=== PATIENT | female | born 1950 | race Caucasian/White ===

== ENCOUNTER 2019-08-08 10:43 | Observation (INO) | payer OTHER ==
[~2019-08-08] VITALS: Ht 154.9 cm; Wt 78.0 kg
--- OUTSIDE RECORDS SUMMARY | 2019-08-08 10:45 | XMS REPORT | Clinical Summary ---
Author Author [facility] Organization [facility] Address Unknown Phone Unavailable Care Team Providers Care Decal Maker Name Role Phone Davis Juan MD PCP Allergies No Known Allergies Medications End Date Status Medication Sig Dispensed Refills Start Date Active amLODIPine (NORVASC) 2.5 Take 2.5 mg 0 10/24 mg tablet by mouth 9 daily. Active diclofenac (VOLTAREN) 1 % Apply 1 Tube 1 gel topically 4 9 (four) times a day. Status Hospital, Clinic, or Ordered Dose Route Frequency Start End Date Other Facility Date Administered Medication Active methylPREDNISolone 80 mg IM once 0 acetate (DEPO-MEDROL) 19 injection 80 mgIndications: Primary osteoarthritis of left knee Active lidocaine (XYLOCAINE) 10 2 mL inj once 1 04/01/19 mg/mL (1 %) injection 2 19 mLIndications: Primary osteoarthritis of left knee Active bupivacaine (MARCAINE) 2 mL inj once 0.25 % (2.5 mg/mL) 19 injection 2 mLIndications: Primary osteoarthritis of left knee Active Problems No known active problems Encounters Care Team Description Date Type Specialty 07/18/2019 Travel Niko Almaraz MD Primary osteoarthritis of left knee (Nikole zara Dx); Knee effusion, left 01/30/2019 Office Visit Orthopedic Surgery Luna Louis Acute pain of left knee (Primary Dx) 01/29/2019 Orders Only Sports Medicine Trino Buchanan MD CMC arthritis (Primary Dx) 11/07/2018 Office Visit Orthopedic Surgery Hamzah Lezama MA Bilateral hand pain (Primary Dx) 11/06/2018 Orders Only Orthopedic Surgery Trino Buchanan MD 10/23/2018 Telephone Orthopedic Surgery Hamzah Lezama MA Bilateral hand pain (Primary Dx) 10/18/2018 Orders Only Orthopedic Surgery after 08/07/2018 Family History Medical History Relation Name Comments Cancer Mother Relation Name Status Comments Father Mother Social History Date Tobacco Use Types Packs/Day Years Used Never Smoker Smokeless Tobacco: Never Used Drinks/Week oz/Week Comments Alcohol Use Never Alcohol Habits Answer Date Recorded How often do you have a drink containing alcohol? Never 11/07/2018 How many drinks containing alcohol do you have on No t asked a typical day when you are drinking? How often do you have six or more drinks on one Not asked occasion? Sex Assigned at Date Recorded Not on file Industry Job Start Date Occupation Not on file Not on file Not on file Travel End Travel History Travel Start No recent travel history available. Date Recorded COVID-19 Exposure Response 07/18/2019 9:53 AM CDT In the last month, have you been in contact with No / Unsure someone who was confirmed or suspected to have Coronavirus / COVID-19? Last Filed Vital Signs Reading Time Taken Comments Vital Sign 158/81 01/30/2019 9:26 AM UX UI DESIGNER Blood Pressure - - Pulse - - Temperature - - Respiratory Rate - - Oxygen Saturation - - Inhaled Oxygen Concentration 75.3 kg (166 lb) 01/30/2019 9:26 AM UX UI DESIGNER Weight 154.9 cm (5' 1") 01/30/2019 9:26 AM UX UI DESIGNER Height 31.37 01/30/2019 9:26 AM UX UI DESIGNER Body Mass Index Plan of Treatment Health Maintenance Due Date Last Done Comments BREAST CANCER SCREENING 1999 COLONOSCOPY SCREENING 1999 SHINGLES VACCINES (#1) 1999 65+ PNEUMOCOCCAL VACCINE 2014 (1 of 2 - PCV13) INFLUENZA VACCINE 10/18/2019 Procedures Comments Procedure Name Priority Date/Time Associated Diag nosis XR KNEE 4+ VW LEFT Routine 01/30/2019 Acute pain of left knee 9:31 AM UX UI DESIGNER XR HANDS 3 VW BILATERAL Routine 11/07/2018 Bilate ral hand pain 10:21 AM CDT [place] ARTHROCENTESIS Routine 11/07/2018 CMC arthriti s ASPIR&/INJ INTERM JT/BURS 10:00 AM CDT W/O US after 08/07/2018 Results * XR Knee 4+ Vw Left (01/30/2019 9:31 AM UX UI DESIGNER) Specimen Narrative Performed At [facility] 4v left knee. I personally ordered and reviewed the imaging. Indication: pain, assessment of joint d isease X-rays demonstrate mild joint space alyson rowing. Medial femoral condyle osteophyte evident on patellofemoral vi ew. No fracture or dislocation. Performing Organization Address [facility] Ph one Number [facility] [address] [place] [address] * XR Hands 3 Vw Bilateral (11/07/2018 10:21 AM CDT) Specimen Narrative Performed At [facility] Xrays: The x-rays were ordered and pers onally reviewed by me. 3 views of the Bilateral hand Reason for exam: Bilateral hand pain Impression: Bilateral hand shows severe thumb CMC and STT arthritis as well as thumb IP arthritis and index th rough small PIP and DIP arthritis Performing Organization Address [facility] Ph one Number [facility] [address] [place] [address] * Medium Joint Arthrocentesis: hand, right (11/07/2018 10:00 AM CDT) Narrative Performed At Trino Buchanan MD 019 4:15 PM Medium Joint Arthrocentesis: hand, righ t Procedure Details Location: hand - right Right side: Right hand medications administered: 6 mg betamethasone acetate & sodium phosphate 6 mg/mL; 0.5 mL lidocaine 10 mg/mL (1 %) Patient tolerance: patient tolerated th e procedure well with no immediate complications after 08/07/2018 Insurance Type Payer Benefit Subscriber ID Effective Phone Address Plan / Dates Group O DEVOTED HEALTH DEVOTED xxxxxx [id number] HEALTH resent Advance Directives For more information, please contact: [phone] Patient Social Media Sr Strategy Manager Explanation Type Date Recorded Advance Directives, Living Will and Medical Power of Neurophysiologist
--- NOTE | 2019-08-08 12:05 | Diagnostic Imaging Report ---
Exam: CT pulmonary angiogram Clinical History: Chest pain Technique: Helical images of the chest were obtained after IV contrast administration using the pulmonary embolism protocol. DOSE REDUCTION: The exams was performed according to the departmental dose-optimization program which includes automated exposure control, adjustment of the mA and/or kV according to patient size and/or use of iterative reconstruction technique. Findings: There is no evidence of acute pulmonary embolism in the main pulmonary artery or its visualized branches. There is no evidence of pulmonary edema, consolidation, pleural effusion, or pneumothorax. Tracheobronchial tree is clear. Mildly prominent pretracheal lymph nodes noted measuring 1 cm in diameter. The cardiac size is within normal limits. The great vessels are normal in caliber and configuration. Postsurgical changes are noted in the epigastric region. A moderate-sized hiatal hernia is also noted. A 1.7 cm lesion in the splenic hilum with rim calcification within internal calcification is noted. This may represent a splenic artery aneurysm. Impression: 1. No CT evidence of acute pulmonary embolism. Signed by: Dr. Cabrera Dial MD on 08/08/2019 12:01 PM
--- NOTE | 2019-08-08 12:18 | Emergency Department Note ---
History of Present Illnes History of Present Illness Chief Complaint: Chest Pain History of Present Illness This is a 69 year old female with chest pain, started today, substerna l, n radiation.No H/O CAD. . Historian: Patient Arrival Mode: Car Onset (how long ago): day(s) (1) Location: left side Quality: tightness Radiation: non-radiation Severity: mild Onset quality: gradual Duration (how long): day(s) (1) Timing of current episode: intermittent Progression: waxing and waning Chronicity: new Context: recent illness, recent surgery, recent immobilization, recent travel, trauma/injury, new medications, hx of DVT/PE, non-compliance w/ medications, other Relieving factors: none Exacerbating factors: none Associated symptoms: denies other symptoms Treatments prior to arrival: none Past Medical/Family History Physician Review I have reviewed the patient's past medical and family history. Any updates have been documented here. Past Medical History Recent Fever: No Clinical Suspicion of Infectio: No New/Unexplained Change in Ment: No Past Medical History: Hypertension Past Surgical History: Appendectomy, Hysterectomy, Bariatric Surgery Other Surgery: Social History Smoking Cessation: Never Smoker Counseling Performed: No Alcohol Use: None Any Illegal Drug Use: No TB Exposure/Symptoms: No Physically hurt or threatened: No Family History Family history of heart diseas: No Other Last Tetanus: UNK Any Pre-Existing Lines (PICC,: No Is patient up to date on immun: Yes Last Flu: 2019 Last Pneumovax: UNK Review of Systems Review of Systems Constitutional: no symptoms EENTM: no symptoms Cardiovascular: no symptoms, as per HPI, chest pain Respiratory: no symptoms Gastrointestinal: no symptoms Genitourinary: no symptoms Musculoskeletal: no symptoms Neurological: no symptoms Psychological: no symptoms Endocrine: no symptoms Hematological/Lymphatic: no symptoms Review of other systems All other systems reviewed and negative. Physical Exam Related Data Allergies: Coded Allergies: No Known Allergies (Unverified , 03/30/13) Triage Vital Signs Vital Signs Date Time Temp Pulse Resp B/P (MAP) Pulse Ox O2 Delivery O2 Flow Rate FiO2 08/08/19 10:55 98.0 68 18 187/86 99 Vital signs reviewed: Yes Physical Exam CONSTITUTIONAL Constitutional: well-developed, well-nourished HENT HENT: normocephalic, atraumatic, oropharynx clear/moist, nose normal HENT L/R: left ext ear normal, right ext ear normal EYES Eyes: PERRL, conjunctivae normal NECK Neck: ROM normal PULMONARY Pulmonary: effort normal, breath sounds normal CARDIOVASCULAR Cardiovascular: regular rhythm, heart sounds normal, capillary refill normal, normal rate GASTROINTESTINAL Abdominal: soft, nontender, bowel sounds normal GENITOURINARY Genitourinary: exam deferred SKIN Skin: warm, dry MUSCULOSKELETAL Musculoskeletal: ROM normal NEUROLOGICAL Neurological: alert, oriented x 3, no gross motor or sensory deficits PSYCHOLOGICAL Psychological: mood/affect normal, judgement normal Results Laboratory Lab results reviewed: Yes Imaging Imaging results reviewed: Yes Procedures 12 Lead ECG Interpretation Auto Bench Mechanic: Interpreted by ED physician Date: August 08, 2019 Time: 10:55 Rhythm: sinus rhythm Rate: normal BPM: 68 QRS axis: normal ST segments normal: Yes Clinical Impression: abnormal ECG Critical Care Time Subsequent provider I assumed direction of critical care for this patient from another provider of my specialty. Assessment & Plan Assessment & Plan Final Impression: (1) Chest pain Assessment & Plan admit Depart Disposition: ADMITTED Last Vital Signs Date Time Temp Pulse Resp B/P (MAP) Pulse Ox O2 Delivery O2 Flow Rate FiO2 08/08/19 10:55 98.0 68 18 187/86 99 Home Meds Unable to Obtain Active Prescriptions or Reported Meds JACKSON GALVAN MD August 08, 2019 12:18
[2019-08-08] MEDS ORDERED: ASPIRIN 325 MG TAB PO ONE (12:30)
[2019-08-08] MEDS ORDERED: ASPIRIN 81 MG CHEW TAB PO ONE (12:30)
[2019-08-08] MEDS ORDERED: ONDANSETRON HCL INJ 2MG/ML 2ML 2 MG/ML VIAL IV PRN (12:30)
[2019-08-08] MEDS ORDERED: CLONIDINE HCL 0.1 MG TAB PO ONE (12:45)
--- NOTE | 2019-08-08 12:56 | NUR ---
[facility] NOTIFED OF TRANSFER. ETA GIVEN IS 30-45 MINUTES
--- OUTSIDE RECORDS SUMMARY | 2019-08-08 13:01 | XMS REPORT | Clinical Summary ---
Author Author [facility] Organization [facility] Address Unknown Phone Unavailable Care Team Providers Care Brim Stiffener Name Role Phone Davis Juan MD PCP [...] Comments Vital Sign 158/81 01/30/2019 9:26 AM GROUNDHAND Blood Pressure - - Pulse - - Temperature - - Respiratory Rate - - Oxygen Saturation - - Inhaled Oxygen Concentration 75.3 kg (166 lb) 01/30/2019 9:26 AM GROUNDHAND Weight 154.9 cm (5' 1") 01/30/2019 9:26 AM GROUNDHAND Height 31.37 01/30/2019 9:26 AM GROUNDHAND Body Mass Index Plan of Treatment Health Maintenance Due Date Last Done Comments BREAST CANCER SCREENING 1999 COLONOSCOPY SCREENING 1999 SHINGLES VACCINES (#1) 1999 65+ PNEUMOCOCCAL VACCINE 2014 (1 of 2 - PCV13) INFLUENZA VACCINE 10/18/2019 Procedures Comments Procedure Name Priority Date/Time Associated Diag nosis XR KNEE 4+ VW LEFT Routine 01/30/2019 Acute pain of left knee 9:31 AM GROUNDHAND XR HANDS 3 VW BILATERAL Routine 11/07/2018 Bilate ral hand pain 10:21 AM CDT ME ARTHROCENTESIS Routine 11/07/2018 [facility] arthriti s ASPIR&/INJ INTERM JT/BURS 10:00 AM CDT W/O US after 08/07/2018 Results * XR Knee 4+ Vw Left (01/30/2019 9:31 AM GROUNDHAND) Specimen Narrative Performed At [facility] 4v left knee. I personally ordered and reviewed the imaging. Indication: pain, assessment of joint d isease X-rays demonstrate mild joint space alyson rowing. Medial femoral condyle osteophyte evident on patellofemoral vi ew. No fracture or dislocation. Performing Organization Address [facility] Ph one Number [facility] [address] [place] [address] * XR Hands 3 Vw Bilateral (11/07/2018 [...] PIP and DIP arthritis Performing Organization Address [facility] Ph one Number [facility] [address] [place] [address] * Medium Joint Arthrocentesis: hand, right (11/07/2018 [...] Advance Directives For more information, please contact: [phone] Patient Winter Intern Explanation Type Date Recorded Advance Directives, Living Will and Medical Power of Sr. Pricing Analyst
--- OUTSIDE RECORDS SUMMARY | 2019-08-08 13:02 | XMS REPORT ---
Author Author [facility] t Organization [facility] Address [address] [place] [address] Phone Unavailable Care Team Providers Care Plywood Matcher Name Role Phone Drake JORGESNEN, Agustin Cannon PCP JACKSON GALVAN Attphys Unavailable Sung JORGENSEN, Nakul Pope Attphys Luna Louis Attphys Unavailable Dewayne JORGENSEN, Yogi Jameson Attphys [phone] Hamzah Lezama MA Attphys Unavailable Payers Payer Name Policy Type Policy Number Effective Date Expiration Date S ource DEVOTED HEALTHDEVOTED HEALTHxxxxxx2019-PresentHMO xxxxxx 2019 00:00:00 Gonzales Tenriism Problems This patient has no known problems. Allergies, Adverse Reactions, Alerts This patient has no known allergies or adverse reactions. Family History Family Member Diagnosis Comments Start Date Stop Date Source Natural mother Cancer [facility] thodist Social History Social Habit Start Date Stop Date Quantity Comments Source History SDOH Alcohol Std Drinks Jay Tenriism History SDOH Alcohol Binge Jay Tenriism Sex Assigned At Ryann ston Tenriism Exposure to SARS-CoV-2 (event) Not sure Jay Tenriism Alcohol intake 2019-01-30 00:00:00 2019-01-30 00:00:00 Lifetime non-drinker (finding) Jay Tenriism History SDOH Alcohol Frequency 2018-11-07 00:00:00 2018-11-07 00:00:0 0 1 Jay Tenriism Smoking Status Start Date Stop Date Source Never smoker Jay Methodis t Medications Ordered Medication Name Filled Medication Name Start Date Stop Da te Current Medication? Ordering Clinician Indication Dosage Frequency Signature (SIG) Comments Components Source methylPREDNISolone acetate (DEPO-MEDROL) injection 80 mg 2019-01-30 09:00:00 Yes Primary osteoarthritis of left knee 80mg [facility] lidocaine (XYLOCAINE) 10 mg/mL (1 %) injection 2 mL 2018-03 09:00:00 Yes Primary osteoarthritis of left knee 2mL [facility] Gil bupivacaine (MARCAINE) 0.25 % (2.5 mg/mL) injection 2 mL 2019-01-30 09:00:00 Yes Primary osteoarthritis of left knee 2mL Christian Gil diclofenac (VOLTAREN) 1 % gel 2018-11-07 00:00:00 Yes Q.25D Apply topically 4 (four) times a day. [facility] amLODIPine (NORVASC) 2.5 mg tablet 2018-10-24 00:00:00 Yes 2.5mg QD Take 2.5 mg by mouth daily. [facility] Vital Signs Vital Name Observation Time Observation Value Comments Source Systolic blood pressure 2019-01-30 09:26:00 158 mm[Hg] Christian Gil Diastolic blood pressure 2019-01-30 09:26:00 81 mm[Hg] Christian Gil Body height 2019-01-30 09:26:00 154.9 cm Christian Gil Body weight 2019-01-30 09:26:00 75.297 kg Christian Gil BMI 2019-01-30 09:26:00 31.37 kg/m2 [facility] Procedures Procedure Date / Time Performed Performing Clinician Sourc e XR KNEE 4+ VW LEFT 2019-01-30 09:31:31 Niko Almaraz XR HANDS 3 VW BILATERAL 2018-11-07 10:21:50 Trino Buchanan [place] ARTHROCENTESIS ASPIR&/INJ INTERM JT/BURS W/O US 2018-10-18 2 10:00:00 Trino Buchanan Plan of Care Planned Activity Planned Date Details Comments Source Future Scheduled Test 2019-10-18 00:00:00 INFLUENZA VACCINE [code = INFLUENZA VACCINE] Christian Gil Future Scheduled Test 2014 00:00:00 65+ PNEUMOCOCCAL V ACCINE (1 of 2 - PCV13) [code = 65+ PNEUMOCOCCAL VACCINE (1 of 2 - PCV13)] [facility] Future Scheduled Test 1999 00:00:00 BREAST CANCER SCRE ENING [code = BREAST CANCER SCREENING] [facility] Gil Future Scheduled Test 1999 00:00:00 COLONOSCOPY SCREEN ING [code = COLONOSCOPY SCREENING] [facility] Gil Future Scheduled Test 1999 00:00:00 SHINGLES VACCINES (#1) [code = SHINGLES VACCINES (#1)] Christian Gil Results Test Description Test Time Test Comments Results Result Comments Source CT CHEST WITH CONTRAST-HOPD 2019-08-08 11:58:00 [facility] [address] [address] Patient Name: PAZ ALCAZAR MR #: [id number] : 1950 Age/Sex: 69/F Req #: [id number] Adm Physician: Ordered by: JACKSON GALVAN MD Report #: [id number] Location: [facility] Room/Bed: Procedure: [id number] HOPD/CT CHEST WITH CONTRAST-HOPD Exam Date: 08/08/19 Exam Time: 1151 REPORT STATUS: Signed Exam: CT pulmonary angiogram Clinical History: Chest pain Technique: Helical images of the chest were obtained after IV contrast administration using the pulmonary embolism protocol. DOSE REDUCTION: The exams was performed according to the departmental dose-optimization program which includes automated exposure control, adjustment of the mA and/or kV according to patient size and/or use of iterative reconstruction technique. Findings: There is no evidence of acute pulmonary embolism in the main pulmonary artery or its visualized branches. There is no evidence of pulmonary edema, consolidation, pleural effusion, or pneumothorax. Tracheobronchial tree is clear. Mildly prominent pretracheal lymph nodes noted measuring 1 cm in diameter. The cardiac size is within normal limits. The great vessels are normal in caliber and configuration. Postsurgical changes are noted in the epigastric region. A moderate-sized hiatal hernia is also noted. A 1.7 cm lesion in the splenic hilum with rim calcification within internal calcification is noted. This may represent a splenic artery aneurysm. Impression: 1. No CT evidence of acute pulmonary embolism. Signed by: Dr. Cabrera Dial MD on 08/08/2019 12:01 PM Dictated By: KATIE DIAL MD 120 Transcribed By: BRANDON on 08/08/19 1201 COPY TO: JACKSON GALVAN MD Medium Joint Arthrocentesis: hand, right 2018-11-07 10:00:00 Trino Buchanan MD 11/07/2018 4:15 PMMedium Joint Arthrocentesis: hand, rightProcedure DetailsLocation: hand - right Right side:Right hand medications administered: 6 mg betamethasone acetate & sodium phosphate 6 mg/mL; 0.5 mL lidocaine 10 mg/mL (1 %)Patient tolerance: patient tolerated the procedure well with no immediate complications Christian Gil
--- NOTE | 2019-08-08 13:04 | NUR ---
COVID 19 TEST PREFORMED AFTER BEING EXPLAINED TO PATIENT WITH VERBAL UNDERSTANDING. PT TOLORATED WELL
[2019-08-08] MEDS ORDERED: DOCUSATE SODIUM 100 MG CAP PO PRN (13:15)
[2019-08-08] MEDS ORDERED: ZOLPIDEM TARTRATE 5 MG TAB PO PRN (13:15)
--- NOTE | 2019-08-08 14:45 | NUR ---
RECEIVED PATIENT FROM [facility]. PATIENT A/O X3, EVEN RESPIRATIONS ON RA. LUNG SOUNDS CLEAR. PATIENT STATES CHEST PRESSURE 7/10. PATIENT AMBULATES INDEPENDENTLY. RIGHT WRIST 18 GAUGE [address] SL. TELEMETRY #1 SR. ORIENTED PATIENT TO ROOM AND CALL LIGHT. CALL LIGHT IN REACH WILL CONTINUE TO MONITOR PATIENT.
[2019-08-08 15:15] VITALS: BP 144/84
[2019-08-08 15:22] VITALS: BP 144/84
[2019-08-08 15:41] VITALS: BP 144/84
[2019-08-08] MEDS ORDERED: FAMOTIDINE 20 MG TAB PO SCH (16:30)
--- NOTE | 2019-08-08 16:40 | NUR ---
CONSULT CALLED FOR DR. OGLESBY.
[2019-08-08] MEDS ORDERED: MORPHINE SULFATE INJ 4 MG/ML INJ 1ML IV PRN (17:00)
[2019-08-08 17:08] LABS: BASOPHILS % 0.6 % (0.0-1.0); EOSINOPHILS # (AUTO) 0.1 (0.0-0.4); HEMATOCRIT 33.7 % (34.2-44.1); HEMOGLOBIN 9.9 g/dL (12.0-16.0); LYMPHOCYTES # (AUTO) 2.1 (1.0-3.2); LYMPHOCYTES % 32.8 % (18.0-39.1); MEAN CORPUSCULAR HEMOGLOBIN 23.2 pg (28-32); MEAN CORPUSCULAR HGB CONC 29.4 g/dL (31-35); MEAN CORPUSCULAR VOLUME 78.9 fL (81-99); MONOCYTES # (AUTO) 0.5 (0.2-0.8); MONOCYTES % 7.7 % (4.4-11.3); NEUTROPHILS # (AUTO) 3.7 (2.1-6.9); NEUTROPHILS % 56.4 % (38.7-80.0); PLATELET COUNT 185 x10e3/uL (140-360); RED BLOOD COUNT 4.27 x10e6/uL (3.6-5.1); RED CELL DISTRIBUTION WIDTH 16.5 % (11.7-14.4)
[2019-08-08] MEDS: PANTOPRAZOLE SOD 40 MG TABEC PO SCH (17:10)
[2019-08-08] MEDS: ACETAMINOPHEN 325 MG TAB PO PRN ×2 (17:18→23:46)
[2019-08-08 17:26] LABS: ANION GAP 10.3 mmol/L (8-16); BLOOD UREA NITROGEN 10 mg/dL (7-26); BUN/CREATININE RATIO 13 (6-25); CARBON DIOXIDE 25 mmol/L (22-29); CHLORIDE 109 mmol/L (98-107); CREATININE, SERUM 0.75 mg/dL (0.57-1.11); EST GLOMERULAR FILTRATION RATE > 60 ML/MIN (60-); GLUCOSE 158 mg/dL (74-118); POTASSIUM 4.3 mmol/L (3.5-5.1); SODIUM 140 mmol/L (136-145)
[2019-08-08 17:29] LABS: CHOL/HDL RATIO 2.9 (3.0-3.6)
[2019-08-08 17:42] LABS: CREATINE KINASE 53 IU/L (29-168)
[2019-08-08 17:43] LABS: ALBUMIN 3.4 g/dL (3.5-5.0); BILIRUBIN,DIRECT 0.2 mg/dL (0.0-0.5)
--- NOTE | 2019-08-08 19:32 | NUR ---
DR. CEDILLO DOING ROUNDS. NEW ORDERS RECEIVED. SEE EMR FOR LIST OF ORDERS.
[2019-08-08 20:00] VITALS: BP 115/69
[2019-08-08] MEDS: ATORVASTATIN 10 MG TAB PO SCH (21:52)
[2019-08-08 22:10] VITALS: BP 115/69
[2019-08-08] MEDS: ZOLPIDEM TARTRATE 10 MG TAB PO PRN (23:57)
[2019-08-09] VITALS (8 sets, daily range): BP systolic 121–147; BP diastolic 67–80
[2019-08-09 00:45] LABS: CREATINE KINASE 44 IU/L (29-168)
--- NOTE | 2019-08-09 03:42 | Consultation ---
DATE OF CONSULTATION: Cardiology Consultation I am on-call for [facility] for Cardiology. DIAGNOSES: 1. Chest pain is highly suggestive of ischemic heart disease, possible angina pectoris. 2. History of hiatal hernia. 3. History of status post gastric bypass surgery 4-5 years ago. 4. Hypertension. Ms. 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 At this time, the patient complained of substernal chest pain. The patient comes to the hospital. One set of troponin is negative. EKG shows nonspecific cystic changes. The patient denies any history of myocardial infarction, history of hypertension present and no history of diabetes mellitus. Does not smoke. She is living with the son, moderately active. PREVIOUS SURGERIES: Include; appendectomy, hysterectomy, bariatric surgery, and hiatal hernia surgery and . The patient clinically has no evidence of congestive heart failure. . Lungs are normal. CAT scan of the lungs normal along with pulmonary emboli protocol. No pulmonary emboli noted. At this time, the patient appears to have two kinds of symptoms probably one may be like gastric reflux symptom which she had for a long time. There is substernal discomfort with EKG changes, highly suggestive it could be ischemic heart disease. I discussed with her that we need to do a stress test and all the possible echocardiogram. We will do it tomorrow, but stress test may not be able to do tomorrow, we can do only on Sunday and depending upon her symptoms tomorrow, we will reevaluate her. In the meantime, continueaspirin 81 mg once a day, metoprolol, and statin, and also she wanted Ambien, it may increase to 10 mg a day. I believe she takes them at home. At this time, the patient is quite stable. Continue to follow the patient. IMPRESSION: 1. Chest pain, possible ischemic heart disease. 2. Hypertension. 3. Bariatric surgery, hiatal surgery. The patient is stable. Troponin is negative. Blood pressure is stable. Thank you again for this consultation. Brigitte Pradhan MD PVB/MODL /[id number] MTDD
--- NOTE | 2019-08-09 05:04 | NUR ---
H&P cc: cp HPI: 69yoF, PCP-, developed left sided chest pressure and mild sob. She has had weeks of dizziness. last stress test 4 years. ago. PMH: hiatal hernia, insomnia, HLD,GERD, HTN PSHx: shoulder x2, gastric bypass, hysterectomy, appendectomy Allergies; see emr FH/Sh; single; no cigs meds; see MAR ROS: no f/c/s/N/V/D/APPIAH/skin rash/vision changes/confusion/depression/focal limb weakness v/s; revd PE tired appearing anicteric ns1s2 mod bs soft nt nd no e/t skin dry n. affect a&ox3; garduno labs/meds revd A/P: Chest pain- r/o ACS INsomnia- ambien HTN- adjust meds; HLD- statin GERD- ppi Obesity- screen for DM; check lipids BMI 32.5- as above Prop: lovenox dispo: f/u studies. Meir Cox MD, PhD.
[2019-08-09] MEDS: HYDRALAZINE HCL 10 MG TAB PO SCH ×3 (05:52→22:07)
--- NOTE | 2019-08-09 07:00 | NUR ---
bedside shift report received pt in stable condition denies pain at this time, updated on poc vocied understandign, call light in reach will continue to monitor
[2019-08-09 08:04] LABS: CREATINE KINASE 39 IU/L (29-168)
[2019-08-09] MEDS: PANTOPRAZOLE SOD 40 MG TABEC PO SCH (08:30)
[2019-08-09] MEDS: ASPIRIN 325 MG TAB EC PO SCH (09:06)
[2019-08-09] MEDS: METOPROLOL TARTRATE 25 MG TAB PO SCH ×2 (09:07→17:37)
[2019-08-09] MEDS: ACETAMINOPHEN 325 MG TAB PO PRN ×2 (09:09→16:11)
[2019-08-09] MEDS ORDERED: ENOXAPARIN SOD INJ 40 MG/0.4 ML SYR SC SCH (17:00)
[2019-08-09] MEDS: ATORVASTATIN 10 MG TAB PO SCH (22:06)
[2019-08-09] MEDS: ZOLPIDEM TARTRATE 10 MG TAB PO PRN (23:35)
[2019-08-10 00:27] VITALS: BP 138/78
[2019-08-10 04:00] VITALS: BP 139/73
[2019-08-10] MEDS: HYDRALAZINE HCL 10 MG TAB PO SCH (06:12)
[2019-08-10 08:05] VITALS: BP 142/81
[2019-08-10] MEDS ORDERED: LIPITOR10 MG PO (08:57)
[2019-08-10] MEDS ORDERED: PROTONIX40 MG/ML PO (08:57)
[2019-08-10] MEDS ORDERED: HYDRALAZINE HCL10 MG PO (08:57)
[2019-08-10] MEDS ORDERED: METOPROLOL TART25 MG PO (08:57)
[2019-08-10] MEDS: PANTOPRAZOLE SOD 40 MG TABEC PO SCH (10:10)
[2019-08-10] MEDS: ASPIRIN 325 MG TAB EC PO SCH (10:10)
[2019-08-10] MEDS: METOPROLOL TARTRATE 25 MG TAB PO SCH (10:12)
[2019-08-10 10:42] VITALS: BP 142/81
[2019-08-10 11:41] VITALS: BP 129/73
== END 2019-08-10 12:41 | disposition home or self-care (01) ==
LOC: FSED 10:43 → INTOOBSV 12:26 → ERHOLD 12:26 → MED/SURG 15:21
PROVIDERS: ADMIT Internal Medicine; ATTEND Internal Medicine
DX: R07.9 Chest pain, unspecified (principal); K44.9 Diaphragmatic hernia without obstruction or gangrene; Z98.84 Bariatric surgery status; I10 Essential (primary) hypertension; G47.00 Insomnia, unspecified; K21.9 Gastro-esophageal reflux disease without esophagitis; E66.9 Obesity, unspecified; Z68.32 Body mass index [BMI] 32.0-32.9, adult; E78.5 Hyperlipidemia, unspecified
CPT/HCPCS: 36415; 71260; 80048; 80053; 80061; 80076; 81003; 82550; 82553; 83036; 84484; 85025; 87635; 93005; 93306; 99284; G0378; J1650

== ENCOUNTER 2020-01-15 11:02 | Emergency (ER) | payer OTHER ==
[~2020-01-15] VITALS: Ht 154.9 cm; Wt 78.0 kg
[~2020-01-15 11:02] MED LIST: HYDRALAZINE HCL10 MG PO; LIPITOR10 MG PO; METOPROLOL TART25 MG PO; PROTONIX40 MG/ML PO
--- NOTE | 2020-01-15 11:09 | Emergency Department Note ---
History of Present Illnes History of Present Illness History of Present Illness This is a 69 year old female s/p fall with resultant R arm pain. Historian: Patient, Family Member Onset (how long ago): minute(s) Radiation: Reports extremity Severity: moderate Onset quality: sudden Duration (how long): hour(s) Timing of current episode: constant Progression: unchanged Context: Reports trauma/injury Relieving factors: immobilization, rest Exacerbating factors: movement Associated symptoms: Denies denies other symptoms, Denies confusion, Denies chest pain, Denies cough, Denies diaphoresis, Denies fever/chills, Denies headaches, Denies loss of appetite, Denies malaise, Denies nausea/vomiting, Denies rash, Denies seizure, Denies shortness of breath, Denies syncope, Denies weakness, Denies other Treatments prior to arrival: none Past Medical/Family History Physician Review I have reviewed the patient's past medical and family history. Any updates have been documented here. Past Medical History Recent Fever: No Clinical Suspicion of Infectio: No New/Unexplained Change in Ment: No Past Medical History: Hypertension Past Surgical History: Appendectomy, Hysterectomy, Bariatric Surgery Other Surgery: Social History Smoking Cessation: Never Smoker Alcohol Use: None Any Illegal Drug Use: No Other Last Tetanus: UNK Review of Systems Review of Systems Constitutional: Reports no symptoms EENTM: Reports no symptoms Cardiovascular: Reports no symptoms Respiratory: Reports no symptoms Gastrointestinal: Reports no symptoms Genitourinary: Reports no symptoms Musculoskeletal: Reports other (R arm pain) Integumentary: Reports no symptoms Neurological: Reports no symptoms Psychological: Reports no symptoms Endocrine: Reports no symptoms Hematological/Lymphatic: Reports no symptoms Physical Exam Related Data Allergies: Coded Allergies: No Known Allergies (Unverified , 03/30/13) Vital signs reviewed: Yes Physical Exam CONSTITUTIONAL Constitutional: Present well-developed, Present well-nourished HENT HENT: Present normocephalic, Present atraumatic, Present oropharynx clear/moist, Present nose normal HENT L/R: Present left ext ear normal, Present right ext ear normal EYES Eyes: Reports PERRL, Reports conjunctivae normal NECK Neck: Present ROM normal PULMONARY Pulmonary: Present effort normal, Present breath sounds normal CARDIOVASCULAR Cardiovascular: Present regular rhythm, Present heart sounds normal, Present capillary refill normal, Present normal rate GASTROINTESTINAL Abdominal: Present soft, Present nontender, Present bowel sounds normal GENITOURINARY Genitourinary: Present exam deferred SKIN Skin: Present warm, Present dry MUSCULOSKELETAL Musculoskeletal: Present tenderness (R UE ) NEUROLOGICAL Neurological: Present alert, Present oriented x 3, Present no gross motor or sensory deficits PSYCHOLOGICAL Psychological: Present mood/affect normal, Present judgement normal Results Imaging Imaging results reviewed: Yes Impressions [place] [id number] Patient Name: PAZ ALCAZAR MR #: [id number] : 1950 Age/Sex: 69/F Req #: [id number] Adm Physician: Ordered by: MEDHAT GONZALEZ DO Report #: [id number] Location: ER Room/Bed: Procedure: [id number] DX/HUMERUS RIGHT 2+VIEWS Exam Date: 01/15/20 Exam Time: 1120 REPORT STATUS: Signed Right humerus, 3 views. History: Fall, right arm pain. Findings: There is lateral soft tissue swelling. The bones are diffusely osteopenic. A comminuted fracture of the humeral surgical neck is present with extension to the greater tuberosity and medial displacement and lateral angulation of the distal humeral fragment. 2 surgical screws are present within the humeral head and neck. There are no lytic or sclerotic lesions. Degenerative changes are present within the before meals and glenohumeral joints. IMPRESSION: Comminuted mildly displaced right humeral neck fracture. Signed by: Medhat Edwards on 01/15/2020 12:01 PM Dictated By: MEDHAT EDWARDS MD 120 Transcribed By: BRANDON on 01/15/20 120 COPY TO: MEDHAT GONZALEZ DO~ Assessment & Plan Medical Decision Making MDM Diff Dx : shoulder dislocation, humeral fx, sprain strain. Reassessment Reassessment time: 12:22 Reassessment case discussed with Dr Althea Ugarte who agreed to see patient in his office after she was discharged from the ED. This was conveyed to the patient and son at bedside . however , son left the department stating that the patient's daughter was planning to pick her up Assessment & Plan Final Impression: (1) Fracture of humeral head, closed Depart Disposition: HOME, SELF-detention Meds Active Scripts Hydralazine Hcl (HYDRALAZINE HCL) 10 Mg Tablet, 10 MG PO Q8HR for 15 Days Prov:ROGER KEENE MD 08/10/19 Metoprolol Tartrate (METOPROLOL TARTRATE) 25 Mg Tablet, 12.5 MG PO BID for 15 Days, TAB Prov:ROGER KEENE MD 08/10/19 Atorvastatin Calcium* (LIPITOR*) 10 Mg Tablet, 10 MG PO HS for 15 Days Prov:ROGER KEENE MD 08/10/19 Pantoprazole Sod (PROTONIX) 40 Mg/Ml Susp, 40 MG PO ACB for 15 Days Prov:ROGER KEENE MD 08/10/19 MEDHAT GONZALEZ DO Jan 15, 2020 11:09
[2020-01-15] MEDS ORDERED: HYDROCODONE/APAP 5MG-325MG TAB PO ONE (11:15)
--- NOTE | 2020-01-15 12:04 | Diagnostic Imaging Report ---
Right humerus, 3 views. History: Fall, right arm pain. Findings: There is lateral soft tissue swelling. The bones are diffusely osteopenic. A comminuted fracture of the humeral surgical neck is present with extension to the greater tuberosity and medial displacement and lateral angulation of the distal humeral fragment. 2 surgical screws are present within the humeral head and neck. There are no lytic or sclerotic lesions. Degenerative changes are present within the before meals and glenohumeral joints. IMPRESSION: Comminuted mildly displaced right humeral neck fracture. Signed by: Medhat Edwards on 01/15/2020 12:01 PM
--- NOTE | 2020-01-15 14:30 | Diagnostic Imaging Report ---
EXAM: CT right shoulder WITHOUT contrast INDICATION: Fall. Arm pain. Shoulder pain. Decreased range of motion. COMPARISON: Radiographs 01/15/2020. TECHNIQUE: Right shoulder was scanned utilizing a multidetector helical scanner without administration of IV contrast. Coronal and sagittal reformations were obtained. Routine protocol was performed. IV CONTRAST: None ORAL CONTRAST: Water COMPLICATIONS: None RADIATION DOSE: Total DLP: 338 mGy*cm Estimated effective dose: (DLP x 0.015 x size factor) mSv CTDIvol has been reviewed. It is below the limits set by the Radiation Protocol Committee (RPC). Dose modulation, iterative reconstruction, and/or weight based adjustment of the mA/kV was utilized to reduce the radiation dose to as low as reasonably achievable. FINDINGS: Comminuted intra-articular mildly displaced impaction type right humeral head/neck fracture with adjacent soft tissue swelling. Several adjacent bone fragments are seen. The largest bone fragment is displaced in a posterior direction by approximately 4 mm. The humeral head is slightly inferiorly subluxed with respect to the glenoid. This is best seen on coronal reformatted image 45. Questionable small avulsion fracture at the inferior rim of the glenoid. There is a shoulder joint effusion. Scattered degenerative change about the glenohumeral and acromioclavicular joints. No osseous erosion. Mild chronic-appearing fragmentation of the acromion adjacent to the acromioclavicular joint. Small bone island in the central glenoid. Metallic anchor in the humerus and along the posterior margin of the proximal humerus likely due to prior rotator cuff repair surgery. The visualized portion of the lung is grossly unremarkable. The remainder of the visualized osseous structures are intact. Impression: Comminuted intra-articular mildly displaced impaction type right humeral head/neck fracture with soft tissue swelling and shoulder joint effusion. Signed by: Dr. Tomás Hood M.D. on 01/15/2020 2:27 PM
== END 2020-01-15 12:38 | disposition home or self-care (01) ==
LOC: ER 11:40
DX: S42.211A Unspecified displaced fracture of surgical neck of right humerus, initial encounter for closed fracture (principal); W01.0XXA Fall on same level from slipping, tripping and stumbling without subsequent striking against object, initial encounter
CPT/HCPCS: 99284

== ENCOUNTER → 2020-12-08 | Day surgery (SDC) | payer OTHER ==
[2020-12-06 11:31] LABS: BASOPHILS # (AUTO) 0.1 (0.0-0.1); BASOPHILS % 0.8 % (0.0-1.0); EOSINOPHILS # (AUTO) 0.3 (0.0-0.4); EOSINOPHILS % 3.5 % (0.0-6.0); HEMOGLOBIN 12.4 g/dL (12.0-16.0); LYMPHOCYTES # (AUTO) 1.5 (1.0-3.2); LYMPHOCYTES % 17.3 % (18.0-39.1); MEAN CORPUSCULAR HEMOGLOBIN 28.1 pg (28-32); MEAN CORPUSCULAR VOLUME 90.7 fL (81-99); MONOCYTES # (AUTO) 0.6 (0.2-0.8); MONOCYTES % 6.7 % (4.4-11.3); NEUTROPHILS % 71.3 % (38.7-80.0); PLATELET COUNT 182 x10e3/uL (140-360); RED BLOOD COUNT 4.41 x10e6/uL (3.6-5.1)
[2020-12-06 12:33] LABS: ALBUMIN 3.6 g/dL (3.5-5.0); ALBUMIN/GLOBULIN RATIO 1.3 (0.8-2.0); ANION GAP 13.2 mmol/L (8-16); CALCIUM 8.6 mg/dL (8.4-10.2); CREATININE, SERUM 0.82 mg/dL (0.57-1.11); POTASSIUM 4.2 mmol/L (3.5-5.1)
[~2020-12-08] MED LIST changes: +ACETAMINOPHEN325 M1 PO; +BELLADONNA/OPIUM 30 MG SUPP RC ONE; +CEFTRIAXONE 1 GM VIAL ONE; +CLOPIDOGREL75 MG PO; +GENTAMICIN 80MG/NS 100 ML 200 ML IV ONE; +IOPAMIDOL 300MG/ML 50ML INFUS..BTL IV ONE; +LOSARTAN POTASS25 MG PO; +OXYBUTYNIN CHLOR5 MG PO; +SODIUM CHLORIDE 0.9% 50ML 50 ML ONE; +TYLENOL #3 PO; +ZOLPIDEM TARTRAT5 MG PO
[2020-12-08 08:35] VITALS: BP 136/71
== END | disposition home or self-care (01) ==
LOC: OR 05:00
PROVIDERS: ATTEND Urology
DX: N20.0 Calculus of kidney (principal); N13.30 Unspecified hydronephrosis; Z46.6 Encounter for fitting and adjustment of urinary device; N28.89 Other specified disorders of kidney and ureter; N81.10 Cystocele, unspecified; N81.6 Rectocele; N95.2 Postmenopausal atrophic vaginitis; I25.10 Atherosclerotic heart disease of native coronary artery without angina pectoris; I10 Essential (primary) hypertension; Z88.1 Allergy status to other antibiotic agents; Z01.810 Encounter for preprocedural cardiovascular examination; Z01.812 Encounter for preprocedural laboratory examination; Z01.818 Encounter for other preprocedural examination; Z20.822 Contact with and (suspected) exposure to COVID-19; Z79.02 Long term (current) use of antithrombotics/antiplatelets
CPT/HCPCS: 36415; 71046; 74018; 74420; 80053; 84550; 85025; 87086; 93005; C1769; C2617; J0696; J1580; U0002

== ENCOUNTER → 2021-01-14 | Day surgery (SDC) | payer OTHER ==
[2021-01-11 08:49] LABS: BASOPHILS # (AUTO) 0.1 (0.0-0.1); BASOPHILS % 0.9 % (0.0-1.0); EOSINOPHILS # (AUTO) 0.1 (0.0-0.4); EOSINOPHILS % 2.3 % (0.0-6.0); HEMATOCRIT 41.5 % (34.2-44.1); HEMOGLOBIN 12.8 g/dL (12.0-16.0); LYMPHOCYTES # (AUTO) 1.5 (1.0-3.2); LYMPHOCYTES % 25.6 % (18.0-39.1); MEAN CORPUSCULAR HEMOGLOBIN 28.4 pg (28-32); MEAN CORPUSCULAR HGB CONC 30.8 g/dL (31-35); MEAN CORPUSCULAR VOLUME 92.2 fL (81-99); MONOCYTES # (AUTO) 0.5 (0.2-0.8); MONOCYTES % 7.8 % (4.4-11.3); NEUTROPHILS # (AUTO) 3.6 (2.1-6.9); NEUTROPHILS % 63.1 % (38.7-80.0); PLATELET COUNT 158 x10e3/uL (140-360); RED CELL DISTRIBUTION WIDTH 14.8 % (11.7-14.4)
[2021-01-11 09:13] LABS: ANION GAP 15.7 mmol/L (8-16); CALCIUM 8.8 mg/dL (8.4-10.2); CREATININE, SERUM 0.81 mg/dL (0.57-1.11); POTASSIUM 4.7 mmol/L (3.5-5.1)
[~2021-01-14] MED LIST changes: +AZO BLADDER CO300 MG PO; -CEFTRIAXONE 1 GM VIAL ONE; +DEXAMETHASONE SOD PHOS INJ 4 MG/ML SDV ONE; +EPHEDRINE SULFATE INJ 50 MG/ML VIAL ONE; -GENTAMICIN 80MG/NS 100 ML 200 ML IV ONE; +LEVOFLOXACIN 500MG/D5W 100ML 100 ML IV ONE; +LIDOCAINE HCL 2% LOCAL INJ 5 ML SDV VIAL INJ ONE; +NITROFURANTOIN100 MG PO; +ONDANSETRON HCL INJ 2MG/ML 2ML 2 MG/ML VIAL ONE; +POVIDONE IODINE 0.05% 0.05 % ML PO ONE; +PROPOFOL IV EMULSION 10 MG/ML 20 ML VIAL ONE; +SEVOFLURANE INHAL SOLN 250 ML PEN BTL ONE
[2021-01-14 10:15] VITALS: BP 141/88
== END | disposition home or self-care (01) ==
LOC: OR 07:40
PROVIDERS: ATTEND Urology
DX: N20.0 Calculus of kidney (principal); Z46.6 Encounter for fitting and adjustment of urinary device; N81.10 Cystocele, unspecified; N81.6 Rectocele; N95.2 Postmenopausal atrophic vaginitis; N28.89 Other specified disorders of kidney and ureter; N13.30 Unspecified hydronephrosis; N39.0 Urinary tract infection, site not specified; I25.10 Atherosclerotic heart disease of native coronary artery without angina pectoris; I10 Essential (primary) hypertension; Z88.1 Allergy status to other antibiotic agents; Z01.812 Encounter for preprocedural laboratory examination; Z01.818 Encounter for other preprocedural examination; Z20.822 Contact with and (suspected) exposure to COVID-19; Z79.02 Long term (current) use of antithrombotics/antiplatelets; Z98.61 Coronary angioplasty status; Z68.32 Body mass index [BMI] 32.0-32.9, adult
CPT/HCPCS: 36415; 74018; 74420; 80048; 84550; 85025; 88300; C1769; J1100; J1956; J2001; J2405; U0002

== ENCOUNTER → 2021-11-17 | Outpatient (CLI) | payer OTHER ==
[~2021-11-17] MED LIST changes: -BELLADONNA/OPIUM 30 MG SUPP RC ONE; -DEXAMETHASONE SOD PHOS INJ 4 MG/ML SDV ONE; -EPHEDRINE SULFATE INJ 50 MG/ML VIAL ONE; -IOPAMIDOL 300MG/ML 50ML INFUS..BTL IV ONE; -LEVOFLOXACIN 500MG/D5W 100ML 100 ML IV ONE; -LIDOCAINE HCL 2% LOCAL INJ 5 ML SDV VIAL INJ ONE; -ONDANSETRON HCL INJ 2MG/ML 2ML 2 MG/ML VIAL ONE; -POVIDONE IODINE 0.05% 0.05 % ML PO ONE; -PROPOFOL IV EMULSION 10 MG/ML 20 ML VIAL ONE; -SEVOFLURANE INHAL SOLN 250 ML PEN BTL ONE; -SODIUM CHLORIDE 0.9% 50ML 50 ML ONE
== END ==
LOC: RAD 11:38
PROVIDERS: ATTEND Family Medicine
DX: S90.31XA Contusion of right foot, initial encounter (principal)